=== PATIENT | male | born 1980 | race Caucasian/White ===

== ENCOUNTER 2018-12-29 21:08 | Emergency (ER) | payer BC ==
[2018-12-29] MEDS ORDERED: Ketorolac Tromethamine 30 MG/ML VIAL ONE (21:51)
--- NOTE | 2018-12-29 21:53 | CT ---
FCT of abdomen and pelvis: 12/29/2018 COMPARISON: None HISTORY: Left flank pain Technique axial CT imaging at 5 mm intervals without contrast from lung bases through pubic symphysis . Coronal reformatted imaging obtained FINDINGS: Lack of contrast limits assessment of the viscera, bowel, vascular structures, and for lymp hadenopathy. The imaged lung bases appear unremarkable. No free intraperitoneal air or fluid is seen. Small fat-containing inguinal hernia on the left. Liver , gallbladder, spleen, pancreas, adrenal glands, and right kidney demonstrate no acute findings. Ther e is a nonspecific round low-density lesion within the anterior aspect of the spleen with Hounsfield units suggesting a cystic lesion, measuring 1.9 cm in AP dimension. There is a mild left-sided hydronephrosis with a stone at the level of the left ureteropelvic junctio n measuring approximately 6 mm in craniocaudal dimension. No additional stone is seen within the left ureter. No evidence for obstructive uropathy on the right. Limited assessment of the bowel demonstrates no evidence for inflammatory change or obstruction. Appe ndix appears grossly unremarkable. Small sliding-type hiatal hernia noted. Osseous structures demonstrate no acute findings. IMPRESSION: Mild hydronephrosis on the left secondary to a 6 mm stone at the left ureteropelvic junct ion. Additional incidental findings as detailed above.
[2018-12-29 22:11] LABS: #Basophils 0.1 thou/uL (0.0-0.2); #Eosinphils 0.1 thou/uL (0.0-0.7); #Lymphocytes 2.8 thou/uL (1.20-3.40); #Monocytes 0.6 thou/uL (0.11-0.59); #Neutrophils 9.8 thou/uL (1.40-6.50); %Basophils 0.9 % (0.0-1.0); %Lymphocytes 20.8 % (21.0-51.0); %Monocytes 4.1 % (0.0-10.0); %Neutrophils 73.2 % (42.0-75.0); Hemoglobin 15.9 g/dL (14.0-18.0); Mean Corpuscular HGB CONC 32.9 g/dL (32.0-36.0); Mean Corpuscular Hemoglobin 28.5 pg (27.0-31.0); Mean Corpuscular Volume 86.5 fL (78.0-98.0); Mean Platelet Volume 7.3 fL (7.4-10.4); Platelet Count 295 thou/uL (130-400); RBC Distribution Width 11.7 % (11.5-14.5); White Blood Cell (WBC) Count 13.3 thou/uL (4.8-10.8)
[2018-12-29 22:29] LABS: ALT (SGPT) 25 U/L (8-55); AST (SGOT) 16 U/L (5-34); Albumin 4.7 g/dL (3.5-5.0); Alkaline Phosphatase 95 U/L (40-150); Anion Gap 14 mmol/L (10-20); BUN (Urea Nitrogen) 16 mg/dL (8.9-20.6); Bilirubin, Total 0.3 mg/dL (0.2-1.2); Calc. Creatinine Clearance 0 mL/min (70-130); Calcium 10.3 mg/dL (7.8-10.44); Carbon Dioxide 24 mmol/L (22-29); Chloride 104 mmol/L (98-107); Estimated GFR-MDRD 59; Globulin 3.2 g/dL (2.4-3.5); Glucose 100 mg/dL (70-105); Protein, Total 7.9 g/dL (6.0-8.3); Sodium 138 mmol/L (136-145)
[2018-12-29 23:08] LABS: Bilirubin Negative (Negative); Blood, Urine Large (Negative); Clarity Clear (Clear); Glucose, Urine (Dipstick) Negative (Negative); Leukocyte Negative (Negative); Nitrite Negative (Negative); Protein, Urine (Dipstick) Trace mg/dL (Neg-Trace); pH, Urine 6.5 (5.0-9.0)
[2018-12-29 23:16] LABS: Bacteria/HPF None Seen HPF (None Seen); Hyaline Casts/LPF 0-3 HYALINE CAST LPF (0-3 Hyaline); Squamous Epithelial 0-3 HPF (0-3); WBC/HPF 0-3 HPF (0-3)
== END 2018-12-29 23:56 | disposition home or self-care (01) ==
LOC: SCSER 21:08
DX: N13.2 Hydronephrosis with renal and ureteral calculous obstruction (principal)
CPT/HCPCS: 74176; 80053; 81003; 81015; 85025; 96361; 96374; J1885

== ENCOUNTER 2019-01-06 09:18 | Outpatient (CLI) | payer BC ==
--- NOTE | 2019-01-06 10:10 | RAD ---
1 VIEW ABDOMEN: Date: 01/06/19 HISTORY: Nephrolithiasis. COMPARISON: None. CORRELATION: Stone protocol CT dated 12/29/18. FINDINGS: Nonspecific bowel gas pattern. No evidence of bowel distention 4 mm density projecting over the left renal silhouette, compatible with a previously noted left ureteropelvic junction calculus. Additional calcifications are not appreciated. Phleboliths in the right hemipelvis noted. IMPRESSION: Calculus projecting over left renal silhouette as described above. POS: OFF
== END 2019-01-06 09:19 | disposition home or self-care (01) ==
LOC: RAD 09:18
PROVIDERS: ATTEND Urology
DX: N20.0 Calculus of kidney (principal)
CPT/HCPCS: 74018

== ENCOUNTER 2019-01-11 01:41 | Outpatient (CLI) | payer BC ==
[2019-01-11 10:03] LABS: Hemoglobin 16.6 g/dL (14.0-18.0); Mean Corpuscular HGB CONC 33.7 g/dL (32.0-36.0); Mean Corpuscular Hemoglobin 29.1 pg (27.0-31.0); Mean Corpuscular Volume 86.3 fL (78.0-98.0); Mean Platelet Volume 7.4 fL (7.4-10.4); Platelet Count 338 thou/uL (130-400); RBC Distribution Width 11.4 % (11.5-14.5); Red Blood Cell (RBC) Count 5.72 mill/uL (4.70-6.10); White Blood Cell (WBC) Count 9.8 thou/uL (4.8-10.8)
[2019-01-11 10:09] LABS: PTT 31.9 SEC (22.9-36.1); Prothrombin Time 12.8 SEC (12.0-14.7)
[2019-01-11 10:26] LABS: Bilirubin Negative (Negative); Blood, Urine Negative (Negative); Clarity CLEAR (Clear); Glucose, Urine (Dipstick) Negative (Negative); Leukocyte Negative (Negative); Nitrite Negative (Negative); Protein, Urine (Dipstick) Trace mg/dL (Neg-Trace); Specific Gravity, Urine 1.022 (1.002-1.036); Urobilinogen 0.2 mg/dL (0.2-1.0)
[2019-01-11 10:30] LABS: Bacteria/HPF None Seen HPF (None Seen); Hyaline Casts/LPF 0-3 HYALINE CAST LPF (0-3 Hyaline); RBC/HPF 0-3 HPF (0-3); Squamous Epithelial 0-3 HPF (0-3); WBC/HPF 0-3 HPF (0-3)
[2019-01-11 10:33] LABS: Anion Gap 14 mmol/L (10-20); BUN (Urea Nitrogen) 18 mg/dL (8.9-20.6); Calc. Creatinine Clearance 0 mL/min (70-130); Calcium 10.2 mg/dL (7.8-10.44); Carbon Dioxide 29 mmol/L (22-29); Chloride 100 mmol/L (98-107); Estimated GFR-MDRD 45; Glucose 84 mg/dL (70-105); Potassium 4.6 mmol/L (3.5-5.1); Sodium 138 mmol/L (136-145)
== END 2019-01-11 01:42 | disposition home or self-care (01) ==
LOC: LABBT 01:41
PROVIDERS: ATTEND Urology
DX: Z01.818 Encounter for other preprocedural examination (principal); N20.0 Calculus of kidney
CPT/HCPCS: 80048; 81001; 85027; 85610; 85730; 87086

== ENCOUNTER 2019-01-20 05:50 | Day surgery (SDC) | payer BC ==
[2019-01-11 09:00] VITALS: BMI 30.1
[2019-01-20] MEDS ORDERED: Fentanyl 100 MCG/2 ML VIAL ONE (08:37)
[2019-01-20] MEDS ORDERED: Midazolam HCl 2 mg/2 ml Vial ONE (08:38)
--- NOTE | 2019-01-20 08:50 | RAD ---
KUB: Date: 01/20/19 COMPARISON: 01/06/19. HISTORY: Preop radiograph. Renal calculus. FINDINGS: Single view of the abdomen shows a nonspecific, nonobstructed bowel gas pattern. There is a 7 mm calc ification just inferior to the left kidney which likely is in the proximal left ureter. No calcificat ions project over either renal shadow. Phleboliths are seen in the pelvis. IMPRESSION: Left proximal ureteral calcification. POS: [facility]
--- NOTE | 2019-01-20 10:15 | OP ---
DATE OF PROCEDURE: 01/20/2019 SERVICE: Urology. PREOPERATIVE DIAGNOSIS: Left renal stone. POSTOPERATIVE DIAGNOSIS: Left renal stone. PROCEDURE PERFORMED: Left extracorporeal shockwave lithotripsy. INDICATIONS FOR PROCEDURE: Mr. Harry is a 38-year-old white male with a history of left renal stone. This is causing intermittent obstruction and has been confirmed on plain x-ray to demonstrate a calcification of the left renal pelvis. We discussed treatment options and the patient elected ESWL with risks and benefits discussed and he has agreed to proceed forward. DESCRIPTION OF PROCEDURE: After identification of armband and verification of consent, the patient was brought back to the operating room, where he underwent general anesthesia with an LMA. He was then left in the supine position and positioned over the ESWL machine. After appropriate time-out, the stone was positioned within the aiming radical on the lithotriptor and shocks were initially started at 1 ice bar with a frequency of 60 hertz. The amplitude was slowly increased up to 4 ice bars at 60 hertz for a total of 2000 shocks delivered. Fluoroscopically, there was near complete fragmentation of the stone. Some of the stone debris did seem to accumulate in the calyces of the kidney indicating that it was mostly pulverized stone particulate. This should pass on its own. I would deem this as complete fragmentation. Shocks were stopped at 2000 due to near complete fragmentation of the stone. Satisfied that the shocks were stopped at that point. The patient was then awakened and taken to PACU for recovery in stable condition. COMPLICATIONS: None. ESTIMATED BLOOD LOSS: Minimal. RETAINED TUBES AND DRAINS: None. SPECIMEN: None. DISPOSITION: The patient will be discharged home and follow up with me in 1 week with a KUB done prior to confirm clearance of stone particulate material. Job ID: [id number]
[2019-01-20] MEDS ORDERED: Dexamethasone 20 MG/5 ML VIAL ONE (16:09)
[2019-01-20] MEDS ORDERED: Ondansetron PF 4 MG/2 ML Vial ONE (16:09)
[2019-01-20] MEDS ORDERED: Lidocaine 1% PF 5 ML VIAL ONE (16:09)
[2019-01-20] MEDS ORDERED: PROPOFOL 200 MG/20 ML VIAL ONE (16:09)
== END 2019-01-20 11:30 | disposition home or self-care (01) ==
LOC: SDC 05:50
PROVIDERS: ATTEND Urology
PROC: 0TF4XZZ Fragmentation in Left Kidney Pelvis, External Approach (ICD-10-PCS; principal; 2019-01-20)
DX: N20.0 Calculus of kidney (principal); Z79.899 Other long term (current) drug therapy; Z88.8 Allergy status to other drugs, medicaments and biological substances
CPT/HCPCS: 74018; J1100; J2001; J2250; J2405; J2704; J3010

== ENCOUNTER 2019-02-07 09:37 | Outpatient (CLI) | payer BC ==
--- NOTE | 2019-02-07 11:23 | RAD ---
ABDOMEN ONE VIEW: HISTORY: Nephrolithiasis. COMPARISON: 01/20/2019 FINDINGS: Evidence for a left renal calculus, which could possibly represent the previously noted proximal left ureteral calculus, which has moved into the substance of the kidney. No other definite left uretera l calculus is seen. IMPRESSION: Evidence for a left renal calculus. This may represent the previously noted proximal left ureteral c alculus, which has moved into the substance of the left kidney. POS: [facility]
== END 2019-02-07 09:38 | disposition home or self-care (01) ==
LOC: RAD 09:37
PROVIDERS: ATTEND Urology
DX: N20.0 Calculus of kidney (principal)
CPT/HCPCS: 74018